=== PATIENT | female | born 1970 | race Hispanic/Latino ===

== ENCOUNTER → 2025-10-12 | Outpatient (CLI) | payer BC ==
[~2025-10-12] MED LIST: ASPI-1443 PO; ATOR10 PO; FISH1CAP49 PO; LOSA100T59 PO; METF-910 PO; METO25TA6 PO
--- NOTE | 2025-10-15 10:32 | HMCIMG ---
DIGITAL BILATERAL SCREENING MAMMOGRAM Technique: The digital mammographic examination of both breasts in craniocaudal and mediolateral oblique views along with CAD was obtained. History: This is a 55 years year-old female 4, para4 Ab0. Patient has no family history of breast cancer. Patient has no complaint Reference:Baseline mammogram. Breast composition: Breast composition C: The breasts are heterogeneously dense, which may obscure small masses. Finding: The digital mammographic examination of both breasts in craniocaudal and mediolateral oblique view along with CAD demonstrates both breasts to there is occasional scattered macrocalcifications seen in both breasts. Be moderately heterogeneously nodular dense breasts. In the left breast in cc view inferiorly there is a density seen near the chest wall.. There is no evidence of any dendritic mass, cluster microcalcification or architectural distortion. The retromammary fat appears to be normal. IMPRESSION: A density seen in the left breast inferiorly near the chest wall in cc view. I would recommend a coned-down compression view of the left breast and bilateral breast sonogram for further evaluation.. FINAL ASSESSMENT: ACR: BI-RAD -0. Incomplete: need additional imaging evaluation. NOTE: IF A WORK-UP OF THIS PATIENT LEADS TO A BIOPSY, PLEASE FORWARD A COPY OF THE PATHOLOGY REPORT TO OUR OFFICE REQUIRED BY [facility] AUGUST 28, 1994. A NEGATIVE MAMMOGRAM SHOULD NOT PRECLUDE BIOPSY OF A CLINICALLY PALPABLE SUSPICIOUS MASS, 10% OF BREAST CANCERS ARE MAMMOGRAPHICALLY OCCULT. THIS MAMMOGRAPHY FACILITY IS FULLY ACCREDITED BY THE [employer]OD AND [employer] (FDA). THANK YOU FOR THIS REFERRAL.
== END | disposition home or self-care (01) ==
LOC: RAH 07:52
PROVIDERS: ATTEND Physician Assistant Medical
DX: Z12.31 Encounter for screening mammogram for malignant neoplasm of breast (principal)
CPT/HCPCS: 77067